=== PATIENT | female | born 1965 | race Caucasian/White ===

== ENCOUNTER 2022-07-30 21:49 | Inpatient (IN) | payer MEDICARE, OTHER ==
[~2022-07-30] VITALS: Ht 170.2 cm; Wt 81.6 kg
--- NOTE | 2022-07-30 22:00 | NUR ---
RN NOTE: ADMITTED A 57-Y/O, FEMALE, PT CAME FROM [facility] ADMITTED ON A 5150 HOLD FOR GD. PER HOLD, PT. ADMITTED DUE PARANOIA AND REFUSING MEDS, CARE AND ADL'S. UPON FACE TO FACE EVALUATION, PATIENT IS ALERT AND ORIENTED X3, APPEARS TO BE PARANOID, ANXIOUS AND GUARDED. VERBALIZATION OF FEELINGS ENCOURAGED. SKIN ASSESSMENT DONE. ALL BELONGINGS WERE CHECKED FOR CONTRABAND. PATIENT'S RIGHTS WERE DISCUSSED AND BOOKLET WAS GIVEN. CONTACTED DR. RIVERO AND HOSPITALIST MECCA LEAVITT AND INFORMED THEM OF THE ADMISSION. PATIENT REFUSED TO SIGN ADMITTING PAPERWORK. PATIENT STATED "I AM EXHAUSTED". BED IN LOW AND LOCKED POSITION. SAFETY PRECAUTIONS MAINTAINED. WILL CONTINUE TO MONITOR Q15 MINS FOR MOOD, SAFETY AND BEHAVIOR.
[2022-07-30 22:01] VITALS: BP 153/86
[2022-07-30] MEDS ORDERED: MAG HYDROX/AL HYDROX/SIMETH 30 ML UDC PO PRN (22:30)
[2022-07-30] MEDS ORDERED: BLOOD SUGAR DIAGNOSTIC 1 EACH STRIP IN ONE (22:30)
[2022-07-30] MEDS: clonazePAM 0.5 MG TABLET PO PRN (23:44)
[2022-07-30] MEDS: ACETAMINOPHEN 325 MG TABLET PO PRN (23:50)
[2022-07-31] MEDS ORDERED: LACT10SO3 PO (01:21)
[2022-07-31] MEDS ORDERED: FLUV50TA3 PO (01:21)
[2022-07-31] MEDS ORDERED: IBUP-51 PO (01:21)
[2022-07-31] MEDS ORDERED: TRAZ-257 PO (01:21)
[2022-07-31] MEDS ORDERED: HYDR-4209 PO (01:21)
[2022-07-31] MEDS ORDERED: QUET50TA15 PO ×2 (01:21→01:23)
[2022-07-31] MEDS ORDERED: GABA300C PO (01:21)
[2022-07-31] MEDS: TEMAZEPAM 7.5 MG CAPSULE PO PRN ×2 (01:36→22:29)
[2022-07-31] MEDS: ACETAMINOPHEN 325 MG TABLET PO PRN ×2 (05:47→16:24)
--- NOTE | 2022-07-31 06:20 | NUR ---
RN NOTES CALLED [phone] AND LEFT VOICE MESSAGE TO XIOMY NOTIFYING THAT THE PT IS ADMITTED LAST NIGHT. WILL ENDORSE TO THE NEXT SHIFT.
[2022-07-31 08:00] VITALS: BP 117/81
[2022-07-31 08:31] LABS: ALBUMIN 3.3 g/dL (3.4-5.0); BILIRUBIN,TOTAL 0.9 mg/dL (0.2-1.0); CALCIUM, SERUM 9.2 mg/dL (8.5-10.1); CREATININE 0.5 mg/dL (0.6-1.3); POTASSIUM 4.2 mmol/L (3.5-5.1); TOTAL PROTEIN, SERUM 6.7 g/dL (6.4-8.2)
[2022-07-31] MEDS: IBUPROFEN 200 MG TABLET PO SCH (08:37)
[2022-07-31] MEDS: clonazePAM 0.5 MG TABLET PO PRN ×2 (08:47→17:50)
[2022-07-31] MEDS: QUETIAPINE FUMARATE 25 MG TABLET PO SCH (10:48)
--- NOTE | 2022-07-31 10:59 | NUR ---
JULIANNE Initial Discharge Note: Pt resides at [facility] located at [address], [place] [address]; ([phone]). Pt contacted person to notify Junior ([phone]) and left a voicemail to contact back. JULIANNE contacted pt's facility and spoke with Sol Pinto ([phone]) and stated pt is on 7 day bed hold. She reported pt is conserved and will send the documents to this technical publications writer. JULIANNE will work with the MD, family, and treatment team to help coordinate appropriate discharge.
--- NOTE | 2022-07-31 10:59 | NUR ---
JULIANNE Clinical Note: Pt placed on a 5150 hold for GD. Per hold, pt was brought in to the hospital because she was paranoid and was not eating or drinking at her facility. Pt resides at [facility] located at [address] [place] [address]; ([phone]). Pt contacted person to notify Junior ([phone]) and left a voicemail to contact back. JULIANNE contacted pt's facility and spoke with Sol Director ([phone]) and stated pt is on 7 day bed hold. She reported pt is conserved and will send the documents to this telegraphic typewriter operator.
--- NOTE | 2022-07-31 11:03 | NUR ---
Public Guardian: SW contacted pt's LPS conservator Gely Dunn ([phone]) and left a detailed voicemail to send LPS document and Detain and Treat. SW notified of admission.
[2022-07-31] MEDS ORDERED: PANT40TA2 PO (11:38)
[2022-07-31] MEDS ORDERED: CYAN-51 PO (11:38)
[2022-07-31] MEDS ORDERED: DOCU-141 PO (11:38)
[2022-07-31] MEDS ORDERED: QUET300T2 PO (11:38)
[2022-07-31] MEDS ORDERED: METO25TA20 PO (11:38)
[2022-07-31] MEDS ORDERED: TOLT4CAP PO (11:38)
[2022-07-31] MEDS: HYDROCODONE/APAP 5/325MG TABLET PO PRN (13:02)
--- NOTE | 2022-07-31 13:43 | NUR ---
Public Guardian: SW contacted pt's LPS conservator Gely Dunn ([phone]) and shared that she will fax the minute order and the detain and treat. She shared that pt [facility] residing [facility] care for ten years but this year of May 2022 she ended up in a hospital and was transferred to a SNF because of her leg situation, she was at [facility]. Gely shared that she would want this music writer to find a different facility but if not then pt can go back to [facility].
--- NOTE | 2022-07-31 14:27 | NUR ---
LPS CONSERVATOR: LPS conservator Gely Dunn ([phone]) send LPS document (minute order). She sent detain and treat and this sports book writer placed in patient's chart and notified staff.
[2022-07-31 16:00] VITALS: BP 127/76
--- NOTE | 2022-07-31 18:41 | NUR ---
RN NOTES RECEIVED IN BE EARLY THIS MORNING. ATTENDED TO NEEDS. ALERT AWAKE ORINETED, VERY NEEDY,COMPLIANT WITH MEDS. NOT SOB/ NO DISTRESS, DNEIES PAIN.ONLY WNAT HER PSYCHMEDS. WILL CALL TO REPOSITION HER LEFT LEG, SHE WILL SAY TO REPOSITION HER HP WELLBUT EVEYTIME WE ARE ABOUT TO MOVE HER, SHE WILL SAY NO AND WILL SEND US AWAY. ALL NEEDS MET AT HTIS TIME. WILL ENDORSE OT NEXT SHIFT FOR JESSICA.
--- NOTE | 2022-07-31 19:55 | NUR ---
FOUNDATION STAGE TEACHER NOTES: RECEIVED PATIENT IN BED RESTING QUIETLY AWAKE. A/OX4. ABLE TO VERBALIZED NEEDS AND CONCERNED.RESPIRATION EVEN AND NON-LABORED. NO C/O PAIN AT THIS TIME. PATIENT IS VERY PARANOID,MANIPULATIVE AND GUARDED. ALL NEEDS MET AND ANTICIPATED. GOOD PATIENT CARE RENDERED.WILL CONTINUE TO MONITOR Q15 FOR SAFETY AND BEHAVIOR WITH HELP OF STAFF.
[2022-07-31 20:00] VITALS: BP 123/67
[2022-07-31] MEDS: FLUVOXAMINE MALEATE 50 MG TABLET PO SCH (21:21)
--- NOTE | 2022-07-31 22:32 | NUR ---
PT. C/O UNABLE TO SLEEP , PRN RESTORIL 15 MG PO GIVEN PER PT. REQUEST, WILL CONTINUE TO MONITOR.
--- NOTE | 2022-08-01 00:23 | NUR ---
RESTORIL 15 MG PO IS EFFECTIVE,PATIENT ASLEEP
[2022-08-01] MEDS: HYDROCODONE/APAP 5/325MG TABLET PO PRN ×3 (01:22→23:36)
--- NOTE | 2022-08-01 01:27 | NUR ---
PT. C/O GENERALIZED BODY PAIN 10/20 , PRN NORCO 5-325 PO GIVEN PER PT. REQUEST, WILL CONTINUE TO MONITOR.
[2022-08-01] MEDS: clonazePAM 0.5 MG TABLET PO PRN ×2 (06:18→10:26)
--- NOTE | 2022-08-01 06:24 | NUR ---
ANXIETY; PT WAS GIVEN ATIVAN 0.5 MG PO FOR AGITATION. Addendum: 08/01/22 at 0631 by SHAHRIAR BELLO RN PATIENT WAS GIVEN KLONOPIN 0.5MG FOR ANXIETY/AGITATION. DISREGARD IST PARAGRAPH
[2022-08-01] MEDS ORDERED: Z GUARD REMEDY 4 OZ OINT TP PRN (06:30)
[2022-08-01 08:00] VITALS: BP 112/90
--- NOTE | 2022-08-01 08:11 | NUR ---
WOUND CARE CONSULT: PT REFUSED ASSESSMENT EXCEPT FOR BREASTFOLDS WHICH HAVE SLIGHT REDNESS AND PEELING SKIN. ADMISSION PHOTO INDICATES REDNESS TO BILATERAL BUTTOCKS. RECOMMENDATIONS MADE FOR SKIN PROTECTION. DISCUSSED WITH NURSING STAFF. MD IN AGREEMENT WITH PLAN OF CARE.
[2022-08-01] MEDS: QUETIAPINE FUMARATE 25 MG TABLET PO SCH ×2 (08:33→16:57)
[2022-08-01] MEDS: IBUPROFEN 200 MG TABLET PO SCH (08:33)
[2022-08-01] MEDS ORDERED: OLANZAPINE 10 MG VIAL IM PRN (09:30)
[2022-08-01] MEDS: CLOTRIMAZOLE 1% 15 GM TUBE TP SCH ×2 (10:21→16:58)
[2022-08-01] MEDS: Z GUARD REMEDY 4 OZ OINT TP SCH (10:22)
--- NOTE | 2022-08-01 10:27 | NUR ---
RN-NOTES PATIENT REQUESTING ANXIETY MEDICATION, KLONOPIN 0.5MG P.O GIVEN PRN ORDER. WILL CONT. MONITORING FOR SAFETY AND BEHAVIOR.
--- NOTE | 2022-08-01 11:10 | NUR ---
Facility Contact: SW received a call from [facility] from [place] social secretary ([phone]) they stated that they do not want to accept pt back. SW stated pt has a bedhold for 7 days and by law they are required to take pt back. They stated if this comic book writer could find a different placement.
[2022-08-01 16:00] VITALS: BP 141/94
[2022-08-01 20:00] VITALS: BP 135/76
[2022-08-01] MEDS: FLUVOXAMINE MALEATE 50 MG TABLET PO SCH (21:05)
--- NOTE | 2022-08-01 23:37 | NUR ---
RN NOTES: PAIN PT. C/O GENERALIZED PAIN 10/20 PRN NARCO 1 TAB GIVEN PER PT. REQUEST, WILL CONTINUE TO MONITOR.
[2022-08-02 08:00] VITALS: BP 148/82
[2022-08-02] MEDS: QUETIAPINE FUMARATE 25 MG TABLET PO SCH ×2 (08:18→17:08)
[2022-08-02] MEDS: Z GUARD REMEDY 4 OZ OINT TP SCH (08:18)
[2022-08-02] MEDS: IBUPROFEN 200 MG TABLET PO SCH (08:18)
[2022-08-02] MEDS: CLOTRIMAZOLE 1% 15 GM TUBE TP SCH ×2 (08:18→17:08)
[2022-08-02] MEDS: HYDROCODONE/APAP 5/325MG TABLET PO PRN ×2 (10:50→20:03)
--- NOTE | 2022-08-02 10:50 | NUR ---
NURSE NOTE: PT C/O PAIN TO BACK AT LEVEL 8/10. REQUESTED NORCO. NORCO PO ADMIN ORDERED. PT MIRIAM WELL. WILL CONT TO MONITOR.
[2022-08-02] MEDS: clonazePAM 0.5 MG TABLET PO PRN (11:42)
--- NOTE | 2022-08-02 11:42 | NUR ---
NURSE NOTE: PT ANXIOUS, REQUESTED KLONOPIN AT THIS TIME. KLONOPIN ADMINISTERED ORDERED. PT MIRIAM WELL. WILL CONT TO MONITOR. PT STATED FEELING BETTER PAIN PRUITT. NO PAIN AT THIS TIME. NORCO EFFECTIVE AT THIS TIME.
--- NOTE | 2022-08-02 12:42 | NUR ---
NURSE NOTE: PT CALM AT THIS TIME, KLONOPIN EFFECTIVE. WILL CONT TO MONITOR.
--- NOTE | 2022-08-02 14:34 | NUR ---
NURSE NOTE: DR TAN NOTIFIED OF NA LEVEL. NO NEW ORDERS AT THIS TIME, WILL CONT TO MONITOR.
[2022-08-02 15:59] VITALS: BP 125/72
--- NOTE | 2022-08-02 19:40 | NUR ---
MARKETING OFFICER NOTES: RECEIVED PATIENT IN BED RESTING QUIETLY AWAKE. A/OX4. ABLE TO VERBALIZED NEEDS AND CONCERNED.RESPIRATION EVEN AND NON-LABORED. PATIENT IS VERY NEEDY,DEMANDING AND MED SEEKER. PATIENT IS VERY PARANOID,MANIPULATIVE AND GUARDED. ALL NEEDS MET AND ANTICIPATED. GOOD PATIENT CARE RENDERED.WILL CONTINUE TO MONITOR Q15 FOR SAFETY AND BEHAVIOR WITH HELP OF STAFF.
--- NOTE | 2022-08-02 20:15 | NUR ---
NURSE NOTE: PT C/O PAIN TO BACK AT LEVEL 8/10. REQUESTED NORCO. NORCO PO ADMIN ORDERED. PT MIRIAM WELL. WILL CONT TO MONITOR.
[2022-08-02 20:30] VITALS: BP 135/72
[2022-08-02] MEDS: FLUVOXAMINE MALEATE 50 MG TABLET PO SCH (21:09)
[2022-08-03] MEDS: clonazePAM 0.5 MG TABLET PO PRN ×3 (01:37→23:00)
[2022-08-03] MEDS: ACETAMINOPHEN 325 MG TABLET PO PRN (03:18)
--- NOTE | 2022-08-03 03:19 | NUR ---
NURSE NOTE: PT C/O LEG PAIN 06/20 REQUESTED PRN TYLENOL 650 MG ADMIN ORDERED. PT MIRIAM WELL. WILL CONT TO MONITOR.
[2022-08-03] MEDS: HYDROCODONE/APAP 5/325MG TABLET PO PRN ×3 (04:51→18:32)
--- NOTE | 2022-08-03 04:54 | NUR ---
NURSE NOTE: PT C/O PAIN TO BACK AT LEVEL 7/10. REQUESTED NORCO. NORCO PO ADMIN ORDERED. PT MIRIAM WELL. WILL CONT TO MONITOR.
--- NOTE | 2022-08-03 05:54 | NUR ---
PT STATED FEELING BETTER PAIN PRUITT. NO PAIN AT THIS TIME. NORCO EFFECTIVE AT THIS TIME
[2022-08-03 08:00] VITALS: BP 149/91
[2022-08-03] MEDS: Z GUARD REMEDY 4 OZ OINT TP SCH (08:25)
[2022-08-03] MEDS: CLOTRIMAZOLE 1% 15 GM TUBE TP SCH ×2 (08:25→17:02)
[2022-08-03] MEDS: IBUPROFEN 200 MG TABLET PO SCH (08:25)
[2022-08-03] MEDS: QUETIAPINE FUMARATE 25 MG TABLET PO SCH ×2 (08:25→17:02)
--- NOTE | 2022-08-03 10:56 | NUR ---
NURSE NOTE: PT C/O PAIN TO BACK AT LEVEL 9/10. REQUESTED NORCO. NORCO PO ADMINISTERED ORDERED. PT MIRIAM WELL. WILL CONT TO MONITOR.
--- NOTE | 2022-08-03 11:56 | NUR ---
NURSE NOTES: PT STATED THAT PAIN LEVEL AT 2/10. NORCO EFFECTIVE AT THIS TIME. WILL CONT TO MONITOR.
--- NOTE | 2022-08-03 13:56 | NUR ---
NURSE NOTE: PT STATED THAT SHE IF FEELING ANXIOUS AT THIS TIME, REQUESTED ATIVAN. ATIVAN PO ADMINISTERED ORDERED. PT MIRIAM WELL. WILL CONT TO MONITOR.
--- NOTE | 2022-08-03 14:56 | NUR ---
NURSE NOTE: PT CALM AT THIS TIME, ATIVAN EFFECTIVE. WILL CONT TO MONITOR.
[2022-08-03 16:00] VITALS: BP 107/76
--- NOTE | 2022-08-03 18:32 | NUR ---
NURSE NOTE: PT C/O PAIN TO BACK AT LEVEL 9/10. REQUESTED NORCO. NORCO PO ADMINISTERED ORDERED. PT MIRIAM WELL. WILL CONT TO MONITOR.
[2022-08-03] MEDS: MAGNESIUM HYDROXIDE 30 ML UDC PO PRN (20:27)
[2022-08-03 20:40] VITALS: BP 143/97
[2022-08-03] MEDS: TEMAZEPAM 7.5 MG CAPSULE PO PRN (21:11)
[2022-08-03] MEDS: FLUVOXAMINE MALEATE 50 MG TABLET PO SCH (21:11)
--- NOTE | 2022-08-03 21:12 | NUR ---
SMOKING PIPE MAKER NOTES: RESTORIL 15 MG GIVEN PER PATIENT REQUEST. NO SIGN OF DISTRESS OR DISCOMFORT NOTED. WILL MONITOR.
--- NOTE | 2022-08-03 23:00 | NUR ---
TELECINE OPERATOR NOTES: KLONOPIN .5 MG GIVEN PER PATIENT REQUEST FOR ANXIETY. WILL CONTINUE TO MONITOR.
[2022-08-04] MEDS: HYDROCODONE/APAP 5/325MG TABLET PO PRN ×3 (03:24→22:11)
--- NOTE | 2022-08-04 03:24 | NUR ---
ART GILDER NOTES: NORCO 5-325 GIVEN, PATIENT C/O LOWER BACK AND LEGS 7/10. REPOSITIONED FOR COMFORT. WILL CONTINUE TO MONITOR.
[2022-08-04] MEDS: clonazePAM 0.5 MG TABLET PO PRN ×3 (05:29→23:50)
--- NOTE | 2022-08-04 05:29 | NUR ---
FOURTH MATE NOTES: KLONOPIN .5 MG GIVEN PER PATIENT REQUESTED FOR ANXIETY. WILL CONTINUE TO MONITOR.
[2022-08-04 08:00] VITALS: BP 134/68
--- NOTE | 2022-08-04 08:18 | NUR ---
Facility Referral: JULIANNE sent clinicals to [facility] to Pedro hagan ([phone]) for placement. SW sent H & P, progress notes, and medication list.
[2022-08-04] MEDS: Z GUARD REMEDY 4 OZ OINT TP SCH (08:31)
[2022-08-04] MEDS: CLOTRIMAZOLE 1% 15 GM TUBE TP SCH ×2 (08:31→16:41)
[2022-08-04] MEDS: IBUPROFEN 200 MG TABLET PO SCH (08:31)
[2022-08-04] MEDS: QUETIAPINE FUMARATE 25 MG TABLET PO SCH ×2 (08:31→16:40)
--- NOTE | 2022-08-04 09:52 | NUR ---
NURSE NOTE: PT VERY AGITATED. REQUESTED KLONOPIN AT THIS TIME. KLONOPIN ADMINISTERED ORDERED. PT MIRIAM WELL. WILL CONT TO MONITOR.
--- NOTE | 2022-08-04 10:52 | NUR ---
NURSE NOTE: PT CALM AT THIS TIME. KLONOPIN EFFECTIVE AT THIS TIME. WILL CONT TO MONITOR.
--- NOTE | 2022-08-04 11:55 | NUR ---
Facility Contact: SW received a call from [facility] to Pedro hagan ([phone]) who stated that pt is accepted.
--- NOTE | 2022-08-04 11:56 | NUR ---
LPS CONSERVATOR: LPS conservator Gely Dunn ([phone]), SW contacted and left her a detailed voicemail that pt is accepted at [facility] and requested to contact this sign writer hand to discuss further.
--- NOTE | 2022-08-04 14:13 | NUR ---
NURSE NOTE: PT C/O PAIN AT LEVEL 9/10. REQUESTED NORCO. NORCO PO ADMINISTERED ORDERED. PT MIRIAM WELL. WILL CONT TO MONITOR.
--- NOTE | 2022-08-04 15:13 | NUR ---
NURSE NOTE: PT SAID THAT SHE IS FEELING BETTER AT THIS TIME. NORCO EFFECTIVE AT THIS TIME. WILL CONT TO MONITOR.
--- NOTE | 2022-08-04 15:15 | NUR ---
NURSE NOTE: PT ANXIOUS AT THIS TIME. REQUESTED KLONOPIN. KLONOPIN PO ADMINISTERED ORDERED. PT MIRIAM WELL. WILL CONT TO MONITOR.
--- NOTE | 2022-08-04 15:20 | NUR ---
NURSE NOTE: URINE SPEC COLLECTED AT THIS TIME. 15 WELSH I&O CATH USED. YELLOW URINE COLLECTED. PT MIRIAM WELL. LAB CALLED TO COLLECT SPEC. WILL CONT TO MONITOR.
[2022-08-04 16:00] VITALS: BP 152/71
--- NOTE | 2022-08-04 16:15 | NUR ---
NURSE NOTE: PT CALM AT THIS TIME. KLONOPIN EFFECTIVE. WILL CONT TO MONITOR.
[2022-08-04 18:35] LABS: BILIRUBIN,URINE NEGATIVE (NEGATIVE); COLOR,URINE YELLOW (YELLOW); LEUKOCYTE ESTERASE ,URINE 3+ (NEGATIVE); NITRITE, URINE POSITIVE (NEGATIVE); PROTEIN,URINE NEGATIVE (NEGATIVE); UGLUCOSE NEGATIVE (NEGATIVE)
[2022-08-04 18:46] LABS: WBC,URINE 81-100 /HPF (0-3)
[2022-08-04 18:47] LABS: BACTERIA,URINE 3+ /HPF (None Seen); SQUAMOUS EPITHELIAL CELL,UR None Seen /HPF (None Seen)
[2022-08-04 20:20] VITALS: BP 143/76
[2022-08-04] MEDS: FLUVOXAMINE MALEATE 50 MG TABLET PO SCH (21:06)
--- NOTE | 2022-08-05 01:39 | NUR ---
RN NOTE NOTIFIED EPIC ON-CALL DIE GRINDER DAGMAR REGARDING U/A RESULT WITH NEW ORDER OF KEFLEX 250MG Q8HR NOTED AND CARRIED OUT.
[2022-08-05] MEDS: TEMAZEPAM 7.5 MG CAPSULE PO PRN ×2 (02:52→22:01)
[2022-08-05] MEDS: CEPHALEXIN MONOHYDRATE 250 MG CAPSULE PO SCH ×3 (04:44→20:14)
--- NOTE | 2022-08-05 07:05 | NUR ---
SHADOWGRAPH SCALE OPERATOR OPENING NOTE PATIENT A/A/OX3, LYING IN BED IN SUPINE POSITION. PATIENT VERBALIZED THAT SHE STILL HAVE BACK PAIN AND NORCO IS NOT EFFECTIVE. I EXPLAINED TO PATIENT THAT WE WILL REVIEW HER PAIN MANAGEMENT WITH THE DOCTOR. PATIENT VERBALIZED UNDERSTANDING INSTRUCTIONS. SAFETY MEASURES IN PLACE, BED LOCK IN THE LOWEST POSITION, CALL LIGHT, TABLE WITHIN REACH. WILL CONT. TO MONITOR.
[2022-08-05 08:00] VITALS: BP 139/71
[2022-08-05] MEDS: QUETIAPINE FUMARATE 25 MG TABLET PO SCH ×2 (08:57→17:15)
[2022-08-05] MEDS: IBUPROFEN 200 MG TABLET PO SCH (08:57)
[2022-08-05] MEDS: CLOTRIMAZOLE 1% 15 GM TUBE TP SCH ×2 (09:02→17:16)
[2022-08-05] MEDS: Z GUARD REMEDY 4 OZ OINT TP SCH (09:02)
[2022-08-05] MEDS: HYDROCODONE/APAP 5/325MG TABLET PO PRN ×2 (12:55→18:35)
[2022-08-05] MEDS: clonazePAM 0.5 MG TABLET PO PRN (14:57)
--- NOTE | 2022-08-05 14:57 | NUR ---
STAKE DRIVER NOTE PATIENT C/O OF FEELING ANXIOUS AND REQUESTED TO HAVE KLONOPIN. MEDICATION ADMINISTERED PER DOCTOR ORDER. PATIENT SPONGE BATH PERFORMED WITH THE NURSE AND SLICE PLUG CUTTER OPERATOR HELPER ASSISTANCE. PATIENT WAS COOPERATIVE.
--- NOTE | 2022-08-05 15:36 | NUR ---
LPS CONSERVATOR: LPS conservator Gely Dunn ([phone]) and notified that pt is accepted at [facility] and she was agreeable of this transition.
[2022-08-05 16:00] VITALS: BP 125/76
--- NOTE | 2022-08-05 19:00 | NUR ---
LEGAL INTERNSHIP CLOSING NOTE PATIENT A/A/OX3, PATIENT HAD NORCO FOR PAIN AND IS EFFECTIVE. PATIENT REPOSITIONED AND CLEANED AT THIS TIME. SAFETY MEASURES IN PLACE, BED TO THE LOWEST POSITION, TABLE WITHIN REACH. I WILL ENDORSE TO THE FOLLOWING NURSE.
[2022-08-05 19:56] VITALS: BP 113/67
[2022-08-05] MEDS: MAGNESIUM HYDROXIDE 30 ML UDC PO PRN (20:14)
--- NOTE | 2022-08-05 20:25 | NUR ---
Pt c/o constipation. MOM 30 ml po prn given as ordered. Will continue to monitor.
[2022-08-05] MEDS: FLUVOXAMINE MALEATE 50 MG TABLET PO SCH (22:01)
--- NOTE | 2022-08-05 22:02 | NUR ---
Pt c/o insomnia. Least restrictive measures ineffective. Restoril 15 mg po prn given as ordered. Will continue to monitor.
--- NOTE | 2022-08-05 23:10 | NUR ---
Post 1 hr Restoril effective. Pt asleep in bed easy to arouse. Bed at low position and bed alarm on. Frequent visual check done for safety. Will continue to monitor. Will endorse to next shift.
[2022-08-06] MEDS: HYDROCODONE/APAP 5/325MG TABLET PO PRN ×4 (02:53→18:41)
--- NOTE | 2022-08-06 02:59 | NUR ---
Pt c/o back and leg pain 10/20. [place] 5/325 mg 1 tab po prn given as ordered. Will continue to monitor.
--- NOTE | 2022-08-06 04:01 | NUR ---
Post 1 hr [place] effective. Pt asleep easy to arouse. ID 0/10. Will continue to monitor. Will endorse to next shift.
[2022-08-06] MEDS: CEPHALEXIN MONOHYDRATE 250 MG CAPSULE PO SCH ×3 (05:19→21:26)
[2022-08-06] MEDS: clonazePAM 0.5 MG TABLET PO PRN ×4 (05:20→23:31)
--- NOTE | 2022-08-06 05:29 | NUR ---
Pt c/o anxiety. Least restrictive measures ineffective. Klonopin 0.5 mg 1 tab po prn given as ordered. Will continue to monitor.
[2022-08-06] MEDS: ACETAMINOPHEN 325 MG TABLET PO PRN ×3 (06:08→21:47)
--- NOTE | 2022-08-06 06:09 | NUR ---
Pt c/o back pain 06/20. Tylenol 650 mg po prn given as ordered. Will continue to monitor.
--- NOTE | 2022-08-06 06:50 | NUR ---
Post 1 hr Klonopin effective. Pt calm in bed. Tylenol effective. LA 0/10. Will continue to monitor. Will endorse to next shift.
[2022-08-06 08:00] VITALS: BP 146/84
[2022-08-06] MEDS: QUETIAPINE FUMARATE 25 MG TABLET PO SCH ×2 (08:42→17:23)
[2022-08-06] MEDS: IBUPROFEN 200 MG TABLET PO SCH (08:42)
[2022-08-06] MEDS: Z GUARD REMEDY 4 OZ OINT TP SCH (08:43)
[2022-08-06] MEDS: CLOTRIMAZOLE 1% 15 GM TUBE TP SCH ×2 (09:00→17:00)
[2022-08-06] MEDS: MAGNESIUM HYDROXIDE 30 ML UDC PO PRN (12:37)
--- NOTE | 2022-08-06 14:20 | NUR ---
PT REFUSED PHYSICAL THERAPY, RISK AND BENEFITS EXPLAINED.
[2022-08-06 16:00] VITALS: BP 123/69
[2022-08-06 20:07] VITALS: BP 120/60
[2022-08-06] MEDS: FLUVOXAMINE MALEATE 50 MG TABLET PO SCH (21:26)
[2022-08-06] MEDS: LACTULOSE 10 G/15 ML UDC (PYXIS) PO PRN (21:42)
[2022-08-06] MEDS: TEMAZEPAM 7.5 MG CAPSULE PO PRN (21:47)
--- NOTE | 2022-08-06 21:47 | NUR ---
RN NOTES-TYLENOL GIVEN PATIENT C/O OF LEG PAIN AND REQUESTED FOR PAIN MEDICATION. GAVE TYLENOL 650MG PRN. WILL CONTINUE TO MONITOR THE PATIENT.
--- NOTE | 2022-08-06 21:50 | NUR ---
RN NOTES-RESTORIL GIVEN PATIENT REQUESTED FOR A SLEEPING PILL. GAVE RESTORIL 15MG PRN. WILL CONTINUE TO MONITOR THE PATIENT.
--- NOTE | 2022-08-06 23:35 | NUR ---
RN NOTES- KLONOPIN GIVEN PATIENT IS VERY ANXIOUS AND RESTLESS. PATIENT REQUESTED FOR A MEDICATION AND GAVE KLONOPIN 0.5MG PRN. WILL CONTINUE TO MONITOR THE PATIENT.
[2022-08-07] MEDS: HYDROCODONE/APAP 5/325MG TABLET PO PRN ×3 (03:30→18:23)
[2022-08-07] MEDS: CEPHALEXIN MONOHYDRATE 250 MG CAPSULE PO SCH ×3 (05:13→21:23)
[2022-08-07] MEDS: ACETAMINOPHEN 325 MG TABLET PO PRN ×2 (06:29→14:28)
--- NOTE | 2022-08-07 07:22 | NUR ---
GPS RN OPENING NOTE RECEIVED PATIENT AWAKE, ALERT AND ORIENNTED X 4. NO APPARENT SIGNS OF DISTRESS NOTED. ON NORMAL BODY ALIGNMENT. IN STABLE CONDITION. NO COMPLAIN OF PAIN OR DISCOMFORT AT THIS TIME. COMFORT MEASURES PROVIDED. SAFETY MEASURES PROVIDED WITH BED IN LOWEST LOCKED POSITION, SIDERAILS RAISED AND CALL LIGHT WITHIN REACH AT ALL TIMES. IN STABLE CONDITION.
[2022-08-07 08:00] VITALS: BP 143/86
[2022-08-07] MEDS: IBUPROFEN 200 MG TABLET PO SCH (08:53)
[2022-08-07] MEDS: QUETIAPINE FUMARATE 25 MG TABLET PO SCH ×2 (08:54→16:08)
[2022-08-07] MEDS: Z GUARD REMEDY 4 OZ OINT TP SCH (08:59)
[2022-08-07] MEDS: CLOTRIMAZOLE 1% 15 GM TUBE TP SCH ×2 (08:59→16:09)
[2022-08-07] MEDS: LACTULOSE 10 G/15 ML UDC (PYXIS) PO PRN (10:45)
[2022-08-07] MEDS: clonazePAM 0.5 MG TABLET PO PRN ×3 (10:45→20:18)
--- NOTE | 2022-08-07 10:50 | NUR ---
GPS NOTE PATIENT RAISED CONCERN ABOUT NOT BEING ABLE TO HAVE A BOWEL MOVEMENT. NOTED PATIENT HAVE NO BOWEL MOVEMENT X 2 DAYS. LACTULOSE GIVEN. ALSO ASKED FOR CLONOPIN FOR ANXIETY. MEDICATION GIVEN AND PROVIDED WITH CALM AND QUIET ENVIRONMENT. IN STABLE CONDITION.
--- NOTE | 2022-08-07 12:25 | NUR ---
GPS NOTE PATIENT COMPLAINED OF PAIN ON BILATERAL LE PAIN 10/20. NORCO GIVEN ORDERED. IN STABLE CONDITION. COMFORT MEASURES PROVIDED. NOT IN DISTRESS.
[2022-08-07 16:00] VITALS: BP 136/81
--- NOTE | 2022-08-07 18:48 | NUR ---
GPS RN CLOSING NOTE PATIENT AWAKE, ALERT AND ORIENTED X 4. NO APPARENT SIGNS OF DISTRESS NOTED. ON NORMAL BODY ALIGNMENT. IN STABLE CONDITION. NO COMPLAIN OF PAIN OR DISCOMFORT AT THIS TIME. COMFORT MEASURES PROVIDED. PATIENT NOTED ATTENTION SEEKING BEHAVIOR. SAFETY MEASURES PROVIDED WITH BED IN LOWEST LOCKED POSITION, SIDERAILS RAISED AND CALL LIGHT WITHIN REACH AT ALL TIMES. IN STABLE CONDITION. WILL ENDORSE TO NEXT SHIFT FOR CONTINUITY OF CARE.
[2022-08-07 20:00] VITALS: BP 110/66
--- NOTE | 2022-08-07 20:01 | NUR ---
NEWSPAPER EDITOR NOTES: RECEIVED PATIENT IN BED AWAKE,A/OX4.NO APPARENT SIGNS OF DISTRESS NOTED.BREATHING NON-LABORED. ON NORMAL BODY ALIGNMENT. IN STABLE CONDITION. NO COMPLAIN OF PAIN OR DISCOMFORT AT THIS TIME. COMFORT MEASURES PROVIDED. PATIENT IS VERY PARAOID,AND GUARDED.SAFETY MEASURES PROVIDED WITH BED IN LOWEST LOCKED POSITION, SIDERAILS UP AND CALL LIGHT WITHIN REACH AT ALL TIMES.WILL CONTINUE TO MONITOR FOR SAFETY AND BEHAVIOR
--- NOTE | 2022-08-07 20:22 | NUR ---
NURSE NOTES:PATIENT IS VERY ANXIOUS AND RESTLESS. PATIENT REQUESTED FOR A MEDICATION AND GAVE KLONOPIN 0.5MG PRN. WILL CONTINUE TO MONITOR.
[2022-08-07] MEDS: FLUVOXAMINE MALEATE 50 MG TABLET PO SCH (21:23)
[2022-08-08] MEDS: HYDROCODONE/APAP 5/325MG TABLET PO PRN ×4 (01:35→22:51)
--- NOTE | 2022-08-08 01:40 | NUR ---
Pt c/o back and leg pain 10/20. [place] 5/325 mg 1 tab po prn given as ordered. Will continue to monitor.
[2022-08-08] MEDS: CEPHALEXIN MONOHYDRATE 250 MG CAPSULE PO SCH ×3 (05:20→21:21)
[2022-08-08] MEDS: clonazePAM 0.5 MG TABLET PO PRN ×2 (05:20→13:43)
--- NOTE | 2022-08-08 05:21 | NUR ---
NURSE NOTES:PATIENT IS VERY ANXIOUS AND RESTLESS. PATIENT REQUESTED FOR A MEDICATION AND GAVE KLONOPIN 0.5MG PRN. WILL CONTINUE TO MONITOR.
[2022-08-08] MEDS: ACETAMINOPHEN 325 MG TABLET PO PRN ×2 (06:08→20:31)
[2022-08-08 08:00] VITALS: BP 144/84
[2022-08-08] MEDS: QUETIAPINE FUMARATE 25 MG TABLET PO SCH ×2 (08:38→16:10)
[2022-08-08] MEDS: IBUPROFEN 200 MG TABLET PO SCH (08:38)
[2022-08-08] MEDS: Z GUARD REMEDY 4 OZ OINT TP SCH (08:39)
[2022-08-08] MEDS: CLOTRIMAZOLE 1% 15 GM TUBE TP SCH ×2 (09:10→16:10)
[2022-08-08] MEDS: LACTULOSE 10 G/15 ML UDC (PYXIS) PO PRN (09:11)
[2022-08-08 16:00] VITALS: BP 111/72
--- NOTE | 2022-08-08 19:51 | NUR ---
VIRTUALIZATION CONSULTANT NOTES: RECEIVED PATIENT IN BED RESTING QUIETLY AWAKE. A/OX4. ON ROOM AIR. ABLE TO VERBALIZED NEEDS AND CONCERNED.BREATHING IS NON-LABORED WITH EQUAL RISE AND FALL OF THE CHEST. PATIENT IS VERY PARANOID,MANIPULATIVE AND GUARDED. PATIENT ASSISTED WITH TURNING AND REPSITIONING Q2H AND PRN FOR COMFORT AND CIRCULATON. BED IN LOWEST,LOCK ED POSITON WITH SIDE RAIL UPX2.ALL NEEDS MET AND ANTICIPATED. GOOD PATIENT CARE RENDERED.WILL CONTINUE TO MONITOR Q15 FOR SAFETY AND BEHAVIOR WITH HELP OF STAFF.
[2022-08-08 20:00] VITALS: BP 108/67
--- NOTE | 2022-08-08 20:33 | NUR ---
Pt c/o back pain 06/20. Tylenol 650 mg po prn given as ordered. Will continue to monitor.
[2022-08-08] MEDS: FLUVOXAMINE MALEATE 50 MG TABLET PO SCH (21:21)
--- NOTE | 2022-08-08 22:52 | NUR ---
Pt c/o back and leg pain 10/20. [place] 5/325 mg 1 tab po prn given as ordered. Will continue to monitor.
[2022-08-09] MEDS: clonazePAM 0.5 MG TABLET PO PRN ×3 (00:48→19:40)
--- NOTE | 2022-08-09 00:50 | NUR ---
NURSE NOTES:PATIENT IS VERY ANXIOUS AND RESTLESS. PATIENT REQUESTED FOR A MEDICATION AND GAVE KLONOPIN 0.5MG PRN. WILL CONTINUE TO MONITOR
[2022-08-09] MEDS: ACETAMINOPHEN 325 MG TABLET PO PRN (04:59)
[2022-08-09] MEDS: CEPHALEXIN MONOHYDRATE 250 MG CAPSULE PO SCH ×3 (05:01→21:17)
--- NOTE | 2022-08-09 05:30 | NUR ---
Pt c/o back pain 06/20. Tylenol 650 mg po prn given as ordered. Will continue to monitoR
[2022-08-09] MEDS: HYDROCODONE/APAP 5/325MG TABLET PO PRN ×2 (07:41→16:57)
[2022-08-09 08:00] VITALS: BP 120/81
[2022-08-09] MEDS: Z GUARD REMEDY 4 OZ OINT TP SCH (08:31)
[2022-08-09] MEDS: IBUPROFEN 200 MG TABLET PO SCH (08:31)
[2022-08-09] MEDS: QUETIAPINE FUMARATE 25 MG TABLET PO SCH ×2 (08:31→16:57)
[2022-08-09] MEDS: CLOTRIMAZOLE 1% 15 GM TUBE TP SCH ×2 (08:34→16:55)
[2022-08-09] MEDS: LACTULOSE 10 G/15 ML UDC (PYXIS) PO PRN (08:40)
[2022-08-09 16:01] VITALS: BP 108/69
--- NOTE | 2022-08-09 19:41 | NUR ---
NURSE NOTES:PATIENT IS VERY ANXIOUS AND RESTLESS. PATIENT REQUESTED FOR A MEDICATION AND GAVE KLONOPIN 0.5MG PRN. WILL CONTINUE TO MONITOR.
[2022-08-09 20:00] VITALS: BP 116/67
--- NOTE | 2022-08-09 20:53 | NUR ---
NURSE NOTE: PT CALM AT THIS TIME. KLONOPIN EFFECTIVE. WILL CONT TO MONITOR.
[2022-08-09] MEDS: FLUVOXAMINE MALEATE 50 MG TABLET PO SCH (21:17)
--- NOTE | 2022-08-09 21:54 | NUR ---
GPS RN NOTE, PATIENT HAS A COMPLAINT OF CHRONIC LOWER BACK AND LEG PAIN AT 8 OUT OF 10 ON THE PAIN SCALE AND IS REQUESTING STRONGER PAIN MEDICATION THAN NORCO 5-325 1 TAB PO Q6HR PRN. TAYA DELACRUZ ASSISTANT CLINICAL NURSE MANAGER ON FLOOR DOING ROUNDS. INFORMED TAYA DELACRUZ OF MY FINDINGS. TAYA DELACRUZ GAVE ORDER FOR NORCO 10-325 1 TAB PO Q6HR PRN. ALL ORDERS NOTED AND CARRIED OUT. WILL CONTINUE TO MONITOR THIS PATIENT WITH THE HELP OF STAFF.
[2022-08-09] MEDS: MAGNESIUM HYDROXIDE 30 ML UDC PO PRN (22:12)
[2022-08-09] MEDS: TEMAZEPAM 7.5 MG CAPSULE PO PRN (22:12)
--- NOTE | 2022-08-09 22:13 | NUR ---
Pt c/o constipation. MOM 30 ml po prn given as ordered. Will continue to monitor.
--- NOTE | 2022-08-09 22:13 | NUR ---
Pt c/o insomnia. Least restrictive measures ineffective. Restoril 15 mg po prn given as ordered. Will continue to monitor.
[2022-08-09] MEDS: HYDROCODONE/APAP 10/325MG TABLET PO PRN (23:58)
--- NOTE | 2022-08-09 23:59 | NUR ---
Pt c/o back and leg pain 10/10. [place] 10/325 mg 1 tab po prn given as ordered. Will continue to monitor.
--- NOTE | 2022-08-10 01:01 | NUR ---
after 1 hr [place] is effective. Pt asleep easy to arouse. ID 0/10. Will continue to monitor.
[2022-08-10] MEDS: ACETAMINOPHEN 325 MG TABLET PO PRN (04:08)
[2022-08-10] MEDS: clonazePAM 0.5 MG TABLET PO PRN ×2 (04:08→11:51)
--- NOTE | 2022-08-10 04:10 | NUR ---
NURSE NOTES:PATIENT IS VERY ANXIOUS AND RESTLESS. PATIENT REQUESTED FOR MEDICATION AND GAVE KLONOPIN 0.5MG PRN , C/O PAIN 3/10 GIVEN TYLENOL 650 MG PRN. WILL CONTINUE TO MONITOR.
[2022-08-10] MEDS: CEPHALEXIN MONOHYDRATE 250 MG CAPSULE PO SCH ×3 (05:00→20:53)
--- NOTE | 2022-08-10 05:26 | NUR ---
NURSE NOTE: PT CALM AT THIS TIME. KLONOPIN IS EFFECTIVE AND TYLENOL FOR PAIN .WILL CONT TO MONITOR AND WILL ENDORSED TO INCOMING NURSE.
[2022-08-10 08:00] VITALS: BP_SYST 117; BP_SYST 141; BP_DIAS 68; BP_DIAS 73
[2022-08-10] MEDS: HYDROCODONE/APAP 10/325MG TABLET PO PRN ×2 (08:16→14:16)
[2022-08-10] MEDS: Z GUARD REMEDY 4 OZ OINT TP SCH (08:51)
[2022-08-10] MEDS: QUETIAPINE FUMARATE 25 MG TABLET PO SCH ×2 (08:52→17:21)
[2022-08-10] MEDS: IBUPROFEN 200 MG TABLET PO SCH (08:52)
[2022-08-10] MEDS: CLOTRIMAZOLE 1% 15 GM TUBE TP SCH ×2 (08:58→17:21)
[2022-08-10] MEDS: LACTULOSE 10 G/15 ML UDC (PYXIS) PO PRN (09:02)
[2022-08-10 20:31] VITALS: BP 111/67
[2022-08-10] MEDS: FLUVOXAMINE MALEATE 50 MG TABLET PO SCH (21:04)
[2022-08-10] MEDS: TEMAZEPAM 7.5 MG CAPSULE PO PRN (21:40)
[2022-08-11] MEDS: HYDROCODONE/APAP 10/325MG TABLET PO PRN ×3 (00:12→12:43)
[2022-08-11] MEDS: clonazePAM 0.5 MG TABLET PO PRN ×3 (04:57→14:06)
[2022-08-11] MEDS: CEPHALEXIN MONOHYDRATE 250 MG CAPSULE PO SCH ×2 (04:59→12:41)
[2022-08-11] MEDS: ACETAMINOPHEN 325 MG TABLET PO PRN (06:19)
--- NOTE | 2022-08-11 07:30 | NUR ---
RN- NOTES PSYCHIATRIST DR. RIVERO AND BACKROOM ASSOCIATE DR. CASTILLO NOTIFIED OF PATIENT DISCHARGE. MEDICATION RECONCILIATION AND ORDER TO DISCONTINUE HOLD AND DISCHARGE TO [facility] COMPLETED.
[2022-08-11 08:00] VITALS: BP 113/74
--- NOTE | 2022-08-11 08:08 | NUR ---
SW Discharge Note: Patient will be discharged to [facility] facility to [facility] [address] [place] [address]; . Please arrange Ambulance transportation for patient to be picked up at 2PM. Jammer Operator spoke with ANGELICA, [employer] Crawler Torch at [facility]; ([phone], who stated patient will be accepted at facility today. Patient is alert and oriented x2. Patient denies any suicidal or homicidal ideations. Patient is aware and agreeable with discharge plans. [facility] Conservator Gely ([phone]) is aware and agreeable. Patient will continue to follow-up with her Psychiatrist Dr. Laura located at [address] [place] [address]; ([phone]) and Truck Rental Service Attendant Dr. Wells at [address], [place] [address]; ([phone]).
[2022-08-11] MEDS: MAGNESIUM HYDROXIDE 30 ML UDC PO PRN (08:51)
[2022-08-11] MEDS: IBUPROFEN 200 MG TABLET PO SCH (08:52)
[2022-08-11] MEDS: QUETIAPINE FUMARATE 25 MG TABLET PO SCH (08:52)
[2022-08-11] MEDS: LACTULOSE 10 G/15 ML UDC (PYXIS) PO PRN (08:56)
[2022-08-11] MEDS: CLOTRIMAZOLE 1% 15 GM TUBE TP SCH (09:05)
[2022-08-11] MEDS: Z GUARD REMEDY 4 OZ OINT TP SCH (09:14)
--- NOTE | 2022-08-11 10:05 | NUR ---
RN- NOTES CLONAZEPAM ADMINISTERED DUE TO INCREASED IRRITABILITY, ANXIETY, AND YELLING.
--- NOTE | 2022-08-11 12:43 | NUR ---
RN- NOTES NORCO 10-325 ADMINISTERED DUE TO PAIN 8/10 ON PAIN SCALE FOR BILATERAL LOWER EXTREMITIES.
--- NOTE | 2022-08-11 14:07 | NUR ---
RN- NOTES CLONAZEPAM ADMINISTERED DUE TO INCREASED IRRITABILITY, ANXIETY, AND YELLING.
--- NOTE | 2022-08-11 14:25 | NUR ---
RN- DISCHARGE NOTES PATIENT DISCHARGED TO [facility] IN STABLE CONDITION. COMPLIANT WITH MEDICATIONS, AND COOPERATIVE WITH TREATMENT PLANS. PATIENT DENIES SUICIDAL/HOMICIDAL IDEATION AND AUDITORY/VISUAL HALLUCINATIONS. BEHAVIOR IMPROVED, PSYCHIATRIC TREATMENT PLANS MET, MEDICAL TREATMENT PLANS DEFERRED FOR CONTINUAL MONITORING. EDUCATED PATIENT ABOUT AFTER CARE PLAN AND COPY PROVIDED. RETURNED ALL PERSONAL BELONGINGS TO PATIENT. PATIENT IS WITHOUT DISTRESS, CALM, COOPERATIVE, AND VITAL SIGNS TAKEN: B/P 136/70, P 100, R 16, 02 SAT 95% ON ROOM AIR. MEDICATIONS RECONCILED WITH PSYCHIATRIST DR. LOGAN AND MED UPPER MARKER DR. CASTILLO. ORDER TO DISCONTINUE HOLD AND DISCHARGE TO [facility] OBTAINED. REPORT GIVEN TO MARY CLARK AT [facility] FOR CONTINUITY OF CARE. PATIENT REFUSED TO SIGN DISCHARGE PAPERWORK, PAPERWORK CO-SIGNED WITH SECOND NURSE. WOUND PICTURES TAKEN ON 08/10/21 AT 2000. PATIENT LEFT THE UNIT AT 1425 VIA AMBULANCE ON A GURNEY.
== END 2022-08-11 14:25 | DRG 885 ==
LOC: GPS 21:53
PROVIDERS: ADMIT Nurse Practitioner Psychiatric/Mental Health
DX: F20.0 Paranoid schizophrenia (principal); N39.0 Urinary tract infection, site not specified; F32.9 Major depressive disorder, single episode, unspecified; I10 Essential (primary) hypertension; M19.90 Unspecified osteoarthritis, unspecified site; E66.01 Morbid (severe) obesity due to excess calories; Z74.01 Bed confinement status; Z79.899 Other long term (current) drug therapy; Z91.199 Patient's noncompliance with other medical treatment and regimen due to unspecified reason; Z20.822 Contact with and (suspected) exposure to COVID-19; Z80.9 Family history of malignant neoplasm, unspecified; Z82.61 Family history of arthritis; Z83.3 Family history of diabetes mellitus
CPT/HCPCS: 36415; 80053-TC; 80061-TC; 81001; 82962-TC; 87081-TC; 87086-TC; 97110-TC; 97530-TC